=== PATIENT | male | born 1955 | race Caucasian/White ===

== ENCOUNTER 2016-11-07 21:52 | Inpatient (IN) | payer OTHER ==
[~2016-11-07] VITALS: Ht 172.7 cm; Wt 102.0 kg
[2016-11-07 23:03] LABS: PLATELET COUNT 244 x10^3mcL (130-400); RED CELL DISTRIBUTION WIDTH 13.3 % (11.5-14.5)
[2016-11-07 23:13] LABS: ALBUMIN 3.8 g/dL (3.4-5.0); ALKALINE PHOSPHATASE 119 U/L (46-116); ALT/SGPT 55 U/L (16-63); AST/SGOT 34 U/L (15-37); BILIRUBIN TOTAL 0.9 mg/dL (0.20-1.00); CARBON DIOXIDE 27.3 mmol/L (21-32); CHLORIDE SERUM 102 mmol/L (98-107); GFR1 > 60 mL/min; GLUCOSE SERUM 128 mg/dL (74-106); HDL CHOLESTEROL 45 mg/dL (40-60); LIPASE 147 IU/L (73-393); POTASSIUM SERUM 3.8 mmol/L (3.5-5.1); SODIUM SERUM 138 mmol/L (136-145); TOTAL PROTEIN, SERUM 8.1 g/dL (6.4-8.2); TRIGLYCERIDES 115 mg/dL (<150)
[2016-11-07 23:14] LABS: CHOLESTEROL 124 mg/dL (<200); CHOLESTEROL/HDL RATIO 2.8
[2016-11-07 23:24] LABS: FREE T4 0.97 ng/dL (0.76-1.46); T4(THYROXINE) 9.3 ug/dL (4.7-13.3)
[2016-11-08] VITALS (7 sets, daily range): BP systolic 107–148; BP diastolic 71–89
[2016-11-08 00:06] LABS: T3 TOTAL 1.45 ng/mL
[2016-11-08 02:58] LABS: MAGNESIUM 1.9 mg/dL (1.8-2.4); PHOSPHOROUS 3.9 mg/dL (2.5-4.9)
[2016-11-08 05:36] LABS: microscopic required? NO
[2016-11-08 05:40] LABS: BASOPHIL % 0.7 % (0-2); PLATELET COUNT 214 x10^3mcL (130-400); RED CELL DISTRIBUTION WIDTH 13.2 % (11.5-14.5)
[2016-11-08 05:44] LABS: UA SPECIFIC GRAVITY <=1.005 (1.005-1.035); urine erythrocyte NEGATIVE (NEGATIVE)
[2016-11-08 05:47] LABS: CALCIUM 8.4 mg/dL (8.5-10.1); CARBON DIOXIDE 26.9 mmol/L (21-32); CHLORIDE SERUM 105 mmol/L (98-107); CREATININE SERUM 0.9 mg/dL (0.7-1.3); GFR1 > 60 mL/min; GLUCOSE SERUM 125 mg/dL (74-106); SODIUM SERUM 138 mmol/L (136-145)
[2016-11-08 05:52] LABS: ALBUMIN 3.3 g/dL (3.4-5.0)
[2016-11-08 06:08] LABS: AMPHETAMINE QUAL UR NONE DETECTED (NEG <=1000)
[2016-11-08] MEDS ORDERED: NOR10 PO (22:03)
[2016-11-08] MEDS ORDERED: GABAPENTIN300 M4 PO (22:04)
[2016-11-08] MEDS ORDERED: LIPI20 PO (22:05)
[2016-11-09 06:02] VITALS: BP 130/74
[2016-11-09] MEDS ORDERED: XARELTO15 M1 PO (09:27)
[2016-11-09] MEDS ORDERED: XARELTO20 M1 PO (09:29)
[2016-11-09 10:02] VITALS: BP 129/72
[2016-11-09] MEDS ORDERED: LIPI20 PO (12:00)
[2016-11-09 12:39] VITALS: BP 128/82
[2016-11-09 12:50] VITALS: BP 131/75
[2016-11-09] MEDS ORDERED: ZES10 PO (13:11)
== END 2016-11-09 16:04 | disposition home or self-care (01) | DRG 134 ==
LOC: ED 21:52 → DU 11-08 02:16
PROVIDERS: Specialist; ADMIT Family Medicine
DX: I26.99 Other pulmonary embolism without acute cor pulmonale (principal); K72.90 Hepatic failure, unspecified without coma; I10 Essential (primary) hypertension; E78.5 Hyperlipidemia, unspecified; M19.071 Primary osteoarthritis, right ankle and foot; M19.90 Unspecified osteoarthritis, unspecified site
CPT/HCPCS: 82962; 83880; 84439; J1644; J1885; J2405; J3010; J7030; J7620; Q0092; Q9967

== ENCOUNTER 2016-11-10 20:04 | Emergency (ER) | payer OTHER ==
[~2016-11-10] VITALS: Ht 172.7 cm; Wt 101.2 kg
[~2016-11-10 20:04] MED LIST: GABAPENTIN300 M4 PO; LIPI20 PO; NOR10 PO; XARELTO15 M1 PO; XARELTO20 M1 PO; ZES10 PO
[2016-11-10 21:52] LABS: PLATELET COUNT 239 x10^3mcL (130-400); RED CELL DISTRIBUTION WIDTH 13.1 % (11.5-14.5)
[2016-11-10 22:05] LABS: CALCIUM 8.6 mg/dL (8.5-10.1); CARBON DIOXIDE 23.8 mmol/L (21-32); CHLORIDE SERUM 102 mmol/L (98-107); CREATININE SERUM 0.9 mg/dL (0.7-1.3); GFR1 > 60 mL/min; GLUCOSE SERUM 111 mg/dL (74-106); POTASSIUM SERUM 3.8 mmol/L (3.5-5.1); SODIUM SERUM 137 mmol/L (136-145)
[2016-11-10 22:09] LABS: ALBUMIN 3.8 g/dL (3.4-5.0); ALKALINE PHOSPHATASE 110 U/L (46-116); ALT/SGPT 69 U/L (16-63); AST/SGOT 53 U/L (15-37); BILIRUBIN TOTAL 0.58 mg/dL (0.20-1.00)
[2016-11-10 22:21] LABS: CK-MB 1.3 ng/mL (0-3.6)
[2016-11-11 01:12] VITALS: BP 141/73
== END 2016-11-11 01:00 | disposition home or self-care (01) ==
LOC: ED 20:04
PROVIDERS: Emergency Medicine
DX: J18.9 Pneumonia, unspecified organism (principal); I10 Essential (primary) hypertension; E78.00 Pure hypercholesterolemia, unspecified; Z86.711 Personal history of pulmonary embolism; Z79.01 Long term (current) use of anticoagulants
CPT/HCPCS: 36600; 83880; J7613; J7644; Q0092

== ENCOUNTER 2018-05-01 12:06 | Emergency (ER) | payer OTHER ==
[~2018-05-01] VITALS: Ht 177.8 cm; Wt 95.7 kg
[2018-05-01 12:18] VITALS: Ht 177.8 cm; Wt 95.7 kg
[2018-05-01 15:31] VITALS: BP 133/94
== END 2018-05-01 15:42 | disposition home or self-care (01) ==
LOC: ED 12:06
DX: J98.01 Acute bronchospasm (principal); R91.8 Other nonspecific abnormal finding of lung field; I10 Essential (primary) hypertension; E78.00 Pure hypercholesterolemia, unspecified; Z98.890 Other specified postprocedural states
CPT/HCPCS: 87804; J0696; J2930; J7030; J7613; J7644

== ENCOUNTER 2019-06-14 21:26 | Emergency (ER) | payer OTHER ==
[~2019-06-14] VITALS: Ht 172.7 cm; Wt 90.7 kg
[2019-06-14 22:04] VITALS: Ht 172.7 cm; Wt 90.7 kg
[2019-06-15 00:51] VITALS: BP 120/80
== END 2019-06-15 00:51 | disposition home or self-care (01) ==
LOC: ED 21:26
DX: M54.42 Lumbago with sciatica, left side (principal); I10 Essential (primary) hypertension; E78.00 Pure hypercholesterolemia, unspecified
CPT/HCPCS: J2270; Q0162